=== PATIENT | female | born 1970 | race African-American/Black ===

== ENCOUNTER 2019-08-28 21:33 | Emergency (ER) | payer MEDICAID ==
[~2019-08-28] VITALS: Ht 162.6 cm; Wt 88.0 kg
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
[2019-08-28] MEDS ORDERED: IBUPROFEN600 MG ORAL (22:12)
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
[2019-08-28 22:45] VITALS: BP 154/98
--- NOTE | 2019-08-28 22:45 | NUR ---
ED Nurse Note: pt is cleared to be d/c per ERMD, pt discharge and aftercare instruction provided w/ prescription, pt education done via discussion and handout, pt advised to return to ed if changes in condition, vss, ambulatory w/ steady gait, left w/ all belongings.
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
== END 2019-08-28 22:47 | disposition home or self-care (01) ==
LOC: EMR 21:52
DX: S39.012A Strain of muscle, fascia and tendon of lower back, initial encounter (principal); S80.02XA Contusion of left knee, initial encounter; S80.10XA Contusion of unspecified lower leg, initial encounter; I10 Essential (primary) hypertension; J45.909 Unspecified asthma, uncomplicated; V43.52XA Car driver injured in collision with other type car in traffic accident, initial encounter; Y92.410 Unspecified street and highway as the place of occurrence of the external cause
CPT/HCPCS: 72020; Z7502; 99283

== ENCOUNTER 2019-10-05 14:30 | Emergency (ER) | payer OTHER ==
[~2019-10-05] VITALS: Ht 162.6 cm; Wt 86.2 kg
[~2019-10-05 14:30] MED LIST: IBUPROFEN600 MG ORAL
[2019-10-05 14:48] VITALS: BP 150/86
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
[2019-10-05] MEDS ORDERED: LIDODERM700 M1 TOPIC (15:32)
[2019-10-05] MEDS ORDERED: ROBAXIN-750750 MG PO (15:32)
[2019-10-05] MEDS ORDERED: NAPROXEN375 M2 ORAL (15:32)
[2019-10-05 15:53] VITALS: BP 145/80
--- NOTE | 2019-10-05 15:53 | NUR ---
ER DISCHARGE NOTE: Pt was seen due to lower back pain. Patient is cleared to be discharged per PA, pt is aox4, on room air, with stable vital signs. pt was given dc and prescription instructions, pt was able to verbalize understanding, pt id band removed. pt is able to ambulate with steady gait. pt took all belongings.
== END 2019-10-05 15:53 | disposition home or self-care (01) ==
LOC: EMR 15:29
DX: M62.830 Muscle spasm of back (principal); M54.6 Pain in thoracic spine; M54.5 Low back pain; I10 Essential (primary) hypertension; K21.9 Gastro-esophageal reflux disease without esophagitis; Z91.040 Latex allergy status
CPT/HCPCS: 99282